=== PATIENT | female | born 1955 | race Caucasian/White ===

== ENCOUNTER 2017-04-04 07:01 | Emergency (ER) | payer OTHER ==
[~2017-04-04] VITALS: Ht 170.2 cm; Wt 128.6 kg
[~2017-04-04 07:01] MED LIST: ADULT LOW DOSE81 M1 PO; AMARYL1 MG PO; AVAPRO150 MG PO; BENADRYL25 MG PO; CO Q-10200 MG PO; COZAAR100 MG PO; CYMBALTA20 MG PO; DICLOFENAC SOD100 MG PO; EXCEDRIN MIGRA1 EAC3 PO; GLUCOPHAGE500 MG PO; JANUVIA100 MG PO; LEXAPRO20 MG PO; LIPITOR10 MG PO; LIPITOR20 MG PO; METFORMIN HCL500 M1 PO; METFORMIN HCL750 MG PO; NORCO 5/3251 TABLET PO; NORVASC10 MG PO; PANTOPRAZOLE SO40 MG PO; PROTONIX40 MG PO; REGLAN5 MG PO; TRAMADOL HCL50 MG PO; TRILIPIX135 MG PO; TYLENOL325 M1 PO; VITAMIN D2000 INTUN PO; VOLTAREN XR100 MG PO; ZOCOR40 MG PO; ZOFRAN ODT4 MG PO
[2017-04-04] MEDS ORDERED: METFORMIN HCL1000 MG PO (07:13)
[2017-04-04] MEDS ORDERED: GLIMEPIRIDE2 MG PO (07:13)
[2017-04-04] MEDS ORDERED: PROTONIX40 MG PO (07:14)
[2017-04-04] MEDS ORDERED: TRESIBA FL100 UNIT/1 SC (07:14)
[2017-04-04] MEDS ORDERED: IRBESARTAN150 MG PO (07:15)
[2017-04-04] MEDS ORDERED: VOLTAREN50 MG PO (07:15)
[2017-04-04] MEDS ORDERED: CYMBALTA60 MG PO (07:16)
[2017-04-04] MEDS ORDERED: LIDODERM 5% P1 PATCH TD (07:40)
[2017-04-04] MEDS ORDERED: TRAMADOL HCL50 MG PO (07:40)
[2017-04-04 07:51] VITALS: BP 129/72
== END 2017-04-04 07:52 | disposition home or self-care (01) ==
LOC: EME 07:01
DX: M25.561 Pain in right knee (principal); E11.9 Type 2 diabetes mellitus without complications; I10 Essential (primary) hypertension; E66.9 Obesity, unspecified; Z88.1 Allergy status to other antibiotic agents; Z88.6 Allergy status to analgesic agent; Z88.0 Allergy status to penicillin
CPT/HCPCS: 99281; 99284